=== PATIENT | male | born 1990 | race Caucasian/White ===

== ENCOUNTER 2016-12-01 17:04 | Emergency (ER) | payer SELFPAY ==
[2016-12-01 17:22] VITALS: RESP 16; TEMP 97.5
[2016-12-01] MEDS: CEFTRIAXONE 1 GM PDS IM ONE (17:51)
[2016-12-01] MEDS ORDERED: LIDOCAINE HCL 1% MPF SOL ONE (17:53)
[2016-12-01] MEDS ORDERED: CEFTRIAXONE 1 GM PDS ONE (17:53)
[2016-12-01 18:02] VITALS: BP 113/78; PULSE 99; O2SAT 99
== END 2016-12-01 18:00 | disposition home or self-care (01) ==
LOC: ED 17:04
DX: S50.311A Abrasion of right elbow, initial encounter (principal); L08.9 Local infection of the skin and subcutaneous tissue, unspecified; W10.1XXA Fall (on)(from) sidewalk curb, initial encounter; F10.10 Alcohol abuse, uncomplicated; T14.90 Injury, unspecified; X78.9XXA Intentional self-harm by unspecified sharp object, initial encounter; S00.01XA Abrasion of scalp, initial encounter
CPT/HCPCS: 99283 ×2; J0696; J2001